=== PATIENT | male | born 1955 | race Caucasian/White ===

== ENCOUNTER 2021-12-27 12:33 | Emergency (ER) | payer OTHER ==
[~2021-12-27] VITALS: Ht 180.3 cm; Wt 98.9 kg
[2021-12-27] MEDS ORDERED: TETANUS/DIPHTHERIA TOXOID [ADULT] 0.5 ML VIAL IM ONE (13:00)
[2021-12-27] MEDS ORDERED: KETOROLAC 15MG/ML VIAL (15MG/ML) IV ONE (14:30)
[2021-12-27 14:33] VITALS: BP 119/70
== END 2021-12-27 14:40 | disposition home or self-care (01) ==
LOC: EDH 12:33
DX: S60.551A Superficial foreign body of right hand, initial encounter (principal); W45.8XXA Other foreign body or object entering through skin, initial encounter; Y93.89 Activity, other specified; Y92.89 Other specified places as the place of occurrence of the external cause; Y99.8 Other external cause status
CPT/HCPCS: 99284; 96374; 90714; 90471; J1885